=== PATIENT | male | born 2000 | race Caucasian/White ===

== ENCOUNTER 2021-07-29 02:55 | Emergency (ER) | payer MEDICAID ==
[~2021-07-29] VITALS: Ht 177.8 cm; Wt 65.9 kg
[2021-07-29] MEDS ORDERED: normal saline 1000ml 1,000 ML IV ONE ×3 (03:05→05:30)
[2021-07-29] MEDS ORDERED: insulin regular, human 10 units/0.1 ml syringe SQ ONE (03:20)
[2021-07-29 03:38] LABS: BASOPHILS # (AUTO) 0.1 X10'3 (0-0.2); EOSINOPHILS # (AUTO) 0.1 X10'3 (0-0.9); EOSINOPHILS % (AUTO) 1.7 % (0-6); HEMATOCRIT 38.1 % (42.0-52.0); HEMOGLOBIN 13.2 g/dl (14.0-17.9); LYMPHOCYTES # (AUTO) 3.1 X10'3 (1.1-4.8); LYMPHOCYTES % (AUTO) 44.1 % (21-51); MEAN CORPUSCULAR HGB CONC 34.5 g/dL (33.0-36.5); MEAN CORPUSCULAR VOLUME 92.5 FL (78-98); MEAN PLATELET VOLUME 9.3 FL (7.4-10.4); MONOCYTES # (AUTO) 0.4 X10'3 (0-0.9); MONOCYTES % (AUTO) 5.7 % (2-12); NEUTROPHILS # (AUTO) 3.4 X10'3 (1.8-7.7); NEUTROPHILS % (AUTO) 47.5 % (42-75); PLATELET COUNT 205 X10'3 (140-440); RED BLOOD COUNT 4.12 X10'6 (4.70-6.10); RED CELL DISTRIBUTION WIDTH 12.4 % (11.5-14.5); WHITE BLOOD COUNT 7.1 X10'3 (4.5-11.0)
[2021-07-29 03:55] LABS: ALBUMIN 3.7 G/DL (3.4-5.0); ANION GAP 19 (8-16); BLOOD UREA NITROGEN 20 MG/DL (7-18); BUN/CREATININE RATIO 18.3 (5.4-32.0); CALCIUM 8.9 MG/DL (8.5-10.1); CHLORIDE 97 MMOL/L (99-107); CREATININE 1.09 MG/DL (0.60-1.10); POTASSIUM 4.3 MMOL/L (3.5-5.1); SODIUM 135 MMOL/L (135-145); TOTAL CARBON DIOXIDE 18.7 MMOL/L (24-32); eGFR 86 ML/MIN
[2021-07-29 04:03] LABS: GLUCOSE 514 MG/DL (70-104)
[2021-07-29 05:11] LABS: ALANINE AMINOTRANSFERASE 15 U/L (12-78); ALBUMIN 2.4 G/DL (3.4-5.0); ALBUMIN/GLOBULIN RATIO 1.1 (1.1-1.5); ALKALINE PHOSPHATASE 136 IU/L (20-180); ANION GAP 16 (8-16); ASPARTATE AMINO TRANSFERASE 8 U/L (10-37); BILIRUBIN,TOTAL 0.3 MG/DL (0.1-1.0); BLOOD UREA NITROGEN 16 MG/DL (7-18); BUN/CREATININE RATIO 20.8 (5.4-32.0); CALCIUM 6.5 MG/DL (8.5-10.1); CHLORIDE 110 MMOL/L (99-107); CREATININE 0.77 MG/DL (0.60-1.10); GLUCOSE 400 MG/DL (70-104); POTASSIUM 3.1 MMOL/L (3.5-5.1); SODIUM 142 MMOL/L (135-145); TOTAL CARBON DIOXIDE 16.4 MMOL/L (24-32); TOTAL PROTEIN 4.6 G/DL (6.4-8.2); eGFR > 90 ML/MIN
[2021-07-29] MEDS ORDERED: potassium chloride 10mEq ER tablet PO STA (05:29)
[2021-07-29 05:57] VITALS: BP 119/61
== END 2021-07-29 06:25 ==
LOC: ER 02:56
DX: E10.65 Type 1 diabetes mellitus with hyperglycemia (principal); E87.2 Acidosis; R10.84 Generalized abdominal pain; Z88.8 Allergy status to other drugs, medicaments and biological substances
CPT/HCPCS: 36415; 80048; 80053; 82948; 85025; 96360; 96372; 99284; J1815; J7030

== ENCOUNTER 2021-08-01 19:50 | Inpatient (IN) | payer MEDICAID ==
[~2021-08-01] VITALS: Ht 180.3 cm; Wt 65.0 kg
[2021-08-01 20:22] LABS: ABG OXYGEN SATURATION 97.9 % (94-97); ABG PO2 (T) 133.2 mmHg (75.0-100.0); ALLEN'S TEST POSITIVE; FCOHb 0.1 % (0.0-3.9); FMetHb 0.1 % (0.0-1.5); FO2Hb 97.7 % (94-97); PATIENT TEMPERATURE 37.2; TOTAL HEMOGLOBIN 13.8 G/dl (14.0-18.0)
[2021-08-01 20:36] LABS: BASOPHILS # (AUTO) 0.1 X10'3 (0-0.2); BASOPHILS % (AUTO) 0.4 % (0-1); EOSINOPHILS % (AUTO) 0 % (0-6); HEMATOCRIT 39.7 % (42.0-52.0); HEMOGLOBIN 13.3 g/dl (14.0-17.9); LYMPHOCYTES # (AUTO) 0.5 X10'3 (1.1-4.8); MEAN CORPUSCULAR HEMOGLOBIN 31.6 PG (27.0-31.0); MEAN CORPUSCULAR HGB CONC 33.5 g/dL (33.0-36.5); MEAN CORPUSCULAR VOLUME 94.3 FL (78-98); MEAN PLATELET VOLUME 8.7 FL (7.4-10.4); MONOCYTES % (AUTO) 6.2 % (2-12); NEUTROPHILS # (AUTO) 15.3 X10'3 (1.8-7.7); NEUTROPHILS % (AUTO) 90.4 % (42-75); PLATELET COUNT 209 X10'3 (140-440); RED BLOOD COUNT 4.21 X10'6 (4.70-6.10); RED CELL DISTRIBUTION WIDTH 13.1 % (11.5-14.5); WHITE BLOOD COUNT 16.9 X10'3 (4.5-11.0)
[2021-08-01 20:53] LABS: ALANINE AMINOTRANSFERASE 24 U/L (12-78); ALBUMIN 2.9 G/DL (3.4-5.0); ALBUMIN/GLOBULIN RATIO 0.9 (1.1-1.5); ALKALINE PHOSPHATASE 124 IU/L (20-180); ASPARTATE AMINO TRANSFERASE 17 U/L (10-37); BILIRUBIN,TOTAL 0.4 MG/DL (0.1-1.0); BLOOD UREA NITROGEN 13 MG/DL (7-18); BUN/CREATININE RATIO 10.7 (5.4-32.0); CALCIUM 7.4 MG/DL (8.5-10.1); CHLORIDE 114 MMOL/L (99-107); CREATININE 1.22 MG/DL (0.60-1.10); GLUCOSE 311 MG/DL (70-104); MAGNESIUM 1.7 MG/DL (1.5-2.4); SODIUM 150 MMOL/L (135-145); TOTAL PROTEIN 6.3 G/DL (6.4-8.2); eGFR 76 ML/MIN
[2021-08-01] MEDS ORDERED: vancomycin/NS 1 GM ADD-VANTAGE 250 ML IV ONE (21:00)
[2021-08-01] MEDS ORDERED: piperacillin/tazo 3.375gm/50ml 50 ML IV ONE (21:00)
[2021-08-01 21:05] LABS: URINE AMPHETAMINE SCREEN NEGATIVE (Neg); URINE BARBITUATE SCREEN NEGATIVE (Neg); URINE BENZODIAZEPINES SCREEN NEGATIVE (Neg); URINE CANNABINOID SCREEN NEGATIVE (Neg); URINE COCAINE SCREEN NEGATIVE (Neg); URINE METHADONE SCREEN NEGATIVE (Neg); URINE OPIATE SCREEN NEGATIVE (Neg); URINE PHENCYCLIDINE SCREEN NEGATIVE (Neg)
[2021-08-01 21:05] LABS: ANION GAP 31 (8-16)
[2021-08-01 21:08] LABS: TOTAL CARBON DIOXIDE < 5 MMOL/L (24-32)
[2021-08-01 21:11] LABS: COLOR,URINE STRAW (Yellow); UA COLLECTION TYPE NON-SPECIFIED
[2021-08-01 21:12] LABS: CLARITY,URINE SLIGHTLY CLOUDY (Clear); GLUCOSE, URINE 100 mg/dl (Neg); KETONES,URINE >=160 mg/dl (Neg); LEUKOCYTE ESTERASE ,URINE NEGATIVE (Neg); NITRITES, URINE NEGATIVE (Neg); OCCULT BLOOD,URINE MODERATE (Neg); PROTEIN,URINE TRACE mg/dl (Neg); UROBILINOGEN,URINE 0.2 E.U/dL (0.2-1.0)
[2021-08-01 21:17] LABS: COARSE GRANULAR CAST 0-3 /LPF (NEGATIVE); SQUAMOUS EPITHELIAL CELL,UR FEW /LPF (FEW)
[2021-08-01 21:20] LABS: BACTERIA,URINE NONE SEEN /HPF (Neg); RBC,URINE 0-2 /HPF (0-2); WBC,URINE 0-4 /HPF (0-4)
[2021-08-01] MEDS ORDERED: dextrose 50%-water 50ml dispensing syringe IV PRN (21:45)
[2021-08-01] MEDS ORDERED: sodium bicarbonate (8.4%) inj. 150 MEQ in dextrose 5%-water 1,000 ML IV SCH (21:45)
[2021-08-01] MEDS ORDERED: Insulin Reg/NS 100units/100mL 100 ML IV SCH ×5 (21:45→21:55)
[2021-08-01] MEDS ORDERED: insulin regular, human U-100 3ml vial - multi-dose IV PRN ×4 (21:55)
[2021-08-01] MEDS ORDERED: sodium bicarbonate (8.4%) inj. 100 MEQ in dextrose 5% water 500ml 500 ML IV PRN ×10 (21:55)
[2021-08-01] MEDS ORDERED: Neutra Phos packet PO PRN ×5 (21:55)
[2021-08-01] MEDS ORDERED: sodium phosphate inj. 15 MMOL in dextrose 5%-water 250 ML IV PRN ×10 (21:55)
[2021-08-01] MEDS ORDERED: sodium bicarbonate (8.4%) inj. 50 MEQ in dextrose 5% water 500ml 250 ML IV PRN ×10 (21:55)
[2021-08-01] MEDS ORDERED: sodium phosphate inj. 30 MMOL in dextrose 5%-water 250 ML IV PRN ×8 (21:55)
[2021-08-01] MEDS ORDERED: normal saline 1000ml 1,000 ML IV SCH ×8 (21:55)
[2021-08-01] MEDS ORDERED: potassium CL 20mEq in D5-1/2NS 1,000 ML IV PRN ×5 (21:55)
[2021-08-01] MEDS ORDERED: potassium Cl 40MEQ/1/2NS 520ml 520 ML IV PRN ×9 (21:55)
[2021-08-01] MEDS ORDERED: potassium Cl 20 mEq SR tablet PO PRN ×10 (21:55)
[2021-08-01] MEDS: normal saline 1000ml 1,000 ML IV SCH (22:25)
[2021-08-01] MEDS ORDERED: acetaminophen 325mg tablet PO PRN (23:15)
[2021-08-01] MEDS ORDERED: ondansetron/PF 4mg/2ml inj IV PRN (23:15)
[2021-08-01] MEDS: potassium Cl 10 mEq/100mL bag IV SCH (23:29)
[2021-08-02 00:29] LABS: ALBUMIN 2.8 G/DL (3.4-5.0); BLOOD UREA NITROGEN 15 MG/DL (7-18); BUN/CREATININE RATIO 10.4 (5.4-32.0); CALCIUM 7.2 MG/DL (8.5-10.1); CHLORIDE 116 MMOL/L (99-107); CREATININE 1.44 MG/DL (0.60-1.10); GLUCOSE 403 MG/DL (70-104); PHOSPHORUS 3.4 MG/DL (2.3-4.5); POTASSIUM 3.2 MMOL/L (3.5-5.1); SODIUM 151 MMOL/L (135-145); eGFR 63 ML/MIN
[2021-08-02] MEDS: potassium Cl 10 mEq/100mL bag IV SCH ×3 (00:47→03:17)
[2021-08-02] MEDS: normal saline 1000ml 1,000 ML IV SCH ×5 (00:49→13:55)
[2021-08-02 00:53] LABS: ANION GAP 30 (8-16)
[2021-08-02 00:55] LABS: TOTAL CARBON DIOXIDE < 5 MMOL/L (24-32)
[2021-08-02 01:59] LABS: TOTAL CELLS COUNTED 100
[2021-08-02 02:00] LABS: PLATELET ESTIMATE NORMAL
[2021-08-02 04:15] LABS: ALBUMIN 2.8 G/DL (3.4-5.0); BLOOD UREA NITROGEN 17 MG/DL (7-18); BUN/CREATININE RATIO 10.6 (5.4-32.0); CALCIUM 6.9 MG/DL (8.5-10.1); CHLORIDE 117 MMOL/L (99-107); CREATININE 1.61 MG/DL (0.60-1.10); GLUCOSE 431 MG/DL (70-104); PHOSPHORUS 3.7 MG/DL (2.3-4.5); POTASSIUM 5.5 MMOL/L (3.5-5.1); SODIUM 151 MMOL/L (135-145); eGFR 55 ML/MIN
[2021-08-02 04:24] LABS: ANION GAP 29 (8-16); TOTAL CARBON DIOXIDE < 5 MMOL/L (24-32)
[2021-08-02] MEDS: Insulin Reg/NS 100units/100mL 100 ML IV SCH ×3 (04:29→19:05)
[2021-08-02] MEDS: insulin regular, human U-100 3ml vial - multi-dose IV PRN ×4 (04:34→08:36)
[2021-08-02] MEDS: K and/or MAG REPLACEMENT MC SCH ×2 (08:00→20:00)
[2021-08-02] MEDS ORDERED: K and/or MAG REPLACEMENT MC SCH ×4 (08:00)
[2021-08-02] MEDS: enoxaparin 40mg/0.4ml syringe SUBCUT SCH (08:53)
[2021-08-02] MEDS: sodium bicarbonate (8.4%) inj. 50 MEQ in dextrose 5%-water 1,000 ML IV SCH ×2 (10:01→11:51)
[2021-08-02 12:18] LABS: ALANINE AMINOTRANSFERASE 22 U/L (12-78); ALBUMIN 2.6 G/DL (3.4-5.0); ALBUMIN/GLOBULIN RATIO 0.9 (1.1-1.5); ALKALINE PHOSPHATASE 120 IU/L (20-180); ANION GAP 25 (8-16); ASPARTATE AMINO TRANSFERASE 16 U/L (10-37); BILIRUBIN,TOTAL 0.6 MG/DL (0.1-1.0); BLOOD UREA NITROGEN 20 MG/DL (7-18); BUN/CREATININE RATIO 11.2 (5.4-32.0); CALCIUM 6.9 MG/DL (8.5-10.1); CHLORIDE 115 MMOL/L (99-107); CREATININE 1.78 MG/DL (0.60-1.10); MAGNESIUM 1.9 MG/DL (1.5-2.4); SODIUM 153 MMOL/L (135-145); TOTAL PROTEIN 5.4 G/DL (6.4-8.2); eGFR 49 ML/MIN
[2021-08-02 12:24] LABS: GLUCOSE 529 MG/DL (70-104); PHOSPHORUS 1.1 MG/DL (2.3-4.5); POTASSIUM 2.7 MMOL/L (3.5-5.1); TOTAL CARBON DIOXIDE 13.1 MMOL/L (24-32)
[2021-08-02] MEDS: MAGNESIUM IV SCH ×2 (12:27→16:41)
[2021-08-02] MEDS: [UNRECOGNIZED DRUG - OTHER] IV SCH ×2 (12:27→16:41)
[2021-08-02] MEDS: SODIUM BICARBONATE IV SCH ×3 (12:27→18:35)
[2021-08-02] MEDS ORDERED: NAPR-996 PO (13:49)
[2021-08-02] MEDS ORDERED: INSU100I39 SQ (13:49)
[2021-08-02] MEDS ORDERED: haloperidol lactate 5mg/ml inj IM PRN (17:00)
[2021-08-02] MEDS ORDERED: LORazepam 2 mg/ml vial IV PRN (17:00)
[2021-08-02] MEDS ORDERED: thiamine 100mg/ml 2ml inj. IV ONE (17:00)
[2021-08-02] MEDS ORDERED: dextrose 50%-water 50ml dispensing syringe IV PRN (17:00)
[2021-08-02] MEDS: esmolol/sodium cl bag 250 ML IV SCH (17:00)
[2021-08-02 17:35] LABS: ALANINE AMINOTRANSFERASE 22 U/L (12-78); ALBUMIN 2.7 G/DL (3.4-5.0); ALBUMIN/GLOBULIN RATIO 0.9 (1.1-1.5); ALKALINE PHOSPHATASE 121 IU/L (20-180); ANION GAP 14 (8-16); ASPARTATE AMINO TRANSFERASE 17 U/L (10-37); BILIRUBIN,TOTAL 0.4 MG/DL (0.1-1.0); BLOOD UREA NITROGEN 17 MG/DL (7-18); BUN/CREATININE RATIO 11.2 (5.4-32.0); CALCIUM 7.4 MG/DL (8.5-10.1); CHLORIDE 122 MMOL/L (99-107); CREATININE 1.52 MG/DL (0.60-1.10); GLUCOSE 171 MG/DL (70-104); TOTAL CARBON DIOXIDE 22.7 MMOL/L (24-32); TOTAL PROTEIN 5.6 G/DL (6.4-8.2); eGFR 59 ML/MIN
[2021-08-02 17:39] LABS: POTASSIUM 1.8 MMOL/L (3.5-5.1); SODIUM 159 MMOL/L (135-145)
[2021-08-02 17:41] LABS: PHOSPHORUS 0.4 MG/DL (2.3-4.5)
[2021-08-02 18:00] VITALS: BP 91/46
[2021-08-02] MEDS: [UNRECOGNIZED DRUG - OTHER] IV SCH (18:35)
[2021-08-02] MEDS: POTASSIUM CL IV SCH (18:35)
[2021-08-02] MEDS: sodium phosphate inj. 30 MMOL in dextrose 5%-water 250 ML IV PRN (18:36)
[2021-08-02 19:00] VITALS: BP 100/54
[2021-08-02 20:00] VITALS: BP 79/55
[2021-08-02 21:00] VITALS: BP 95/45
[2021-08-02 21:05] LABS: ALANINE AMINOTRANSFERASE 22 U/L (12-78); ALBUMIN 2.7 G/DL (3.4-5.0); ALKALINE PHOSPHATASE 121 IU/L (20-180); ANION GAP 11 (8-16); ASPARTATE AMINO TRANSFERASE 18 U/L (10-37); BILIRUBIN,TOTAL 0.3 MG/DL (0.1-1.0); BLOOD UREA NITROGEN 17 MG/DL (7-18); BUN/CREATININE RATIO 11.7 (5.4-32.0); CALCIUM 7.4 MG/DL (8.5-10.1); CHLORIDE 120 MMOL/L (99-107); CREATININE 1.45 MG/DL (0.60-1.10); GLUCOSE 78 MG/DL (70-104); MAGNESIUM 1.8 MG/DL (1.5-2.4); TOTAL CARBON DIOXIDE 27.8 MMOL/L (24-32); TOTAL PROTEIN 5.5 G/DL (6.4-8.2); eGFR 62 ML/MIN
[2021-08-02 21:14] LABS: PHOSPHORUS 0.9 MG/DL (2.3-4.5); POTASSIUM 2.1 MMOL/L (3.5-5.1); SODIUM 159 MMOL/L (135-145)
[2021-08-02 22:00] VITALS: BP 113/41
[2021-08-02 23:00] VITALS: BP 95/41
[2021-08-03] VITALS (24 sets, daily range): BP systolic 87–121; BP diastolic 33–76
[2021-08-03] MEDS: POTASSIUM CL IV SCH ×4 (00:14→23:52)
[2021-08-03] MEDS: [UNRECOGNIZED DRUG - OTHER] IV SCH ×4 (00:14→23:52)
[2021-08-03] MEDS: SODIUM BICARBONATE IV SCH ×4 (00:14→23:52)
[2021-08-03 01:50] LABS: ALANINE AMINOTRANSFERASE 22 U/L (12-78); ALBUMIN 2.4 G/DL (3.4-5.0); ALBUMIN/GLOBULIN RATIO 0.9 (1.1-1.5); ALKALINE PHOSPHATASE 110 IU/L (20-180); ANION GAP 10 (8-16); ASPARTATE AMINO TRANSFERASE 17 U/L (10-37); BILIRUBIN,TOTAL 0.4 MG/DL (0.1-1.0); BLOOD UREA NITROGEN 17 MG/DL (7-18); BUN/CREATININE RATIO 12.2 (5.4-32.0); CALCIUM 7.1 MG/DL (8.5-10.1); CHLORIDE 119 MMOL/L (99-107); CREATININE 1.39 MG/DL (0.60-1.10); GLUCOSE 171 MG/DL (70-104); MAGNESIUM 1.8 MG/DL (1.5-2.4); TOTAL CARBON DIOXIDE 28.9 MMOL/L (24-32); eGFR 65 ML/MIN
[2021-08-03 02:16] LABS: SODIUM 158 MMOL/L (135-145)
[2021-08-03 02:17] LABS: PHOSPHORUS 0.7 MG/DL (2.3-4.5); POTASSIUM 1.8 MMOL/L (3.5-5.1)
[2021-08-03] MEDS: potassium Cl 40MEQ/1/2NS 520ml 520 ML IV PRN ×3 (02:35→12:44)
[2021-08-03] MEDS: sodium phosphate inj. 30 MMOL in dextrose 5%-water 250 ML IV PRN (03:25)
[2021-08-03] MEDS: esmolol/sodium cl bag 250 ML IV SCH ×2 (05:15→18:40)
[2021-08-03] MEDS: potassium CL 20mEq in D5-1/2NS 1,000 ML IV SCH ×3 (06:50→18:25)
[2021-08-03] MEDS: K and/or MAG REPLACEMENT MC SCH ×2 (07:59→20:02)
[2021-08-03] MEDS: enoxaparin 40mg/0.4ml syringe SUBCUT SCH (07:59)
[2021-08-03 10:32] LABS: ALANINE AMINOTRANSFERASE 18 U/L (12-78); ALBUMIN 2.3 G/DL (3.4-5.0); ALBUMIN/GLOBULIN RATIO 0.9 (1.1-1.5); ALKALINE PHOSPHATASE 105 IU/L (20-180); ANION GAP 29 (8-16); ASPARTATE AMINO TRANSFERASE 22 U/L (10-37); BILIRUBIN,TOTAL 0.6 MG/DL (0.1-1.0); BLOOD UREA NITROGEN 16 MG/DL (7-18); BUN/CREATININE RATIO 12.9 (5.4-32.0); CALCIUM 6.7 MG/DL (8.5-10.1); CHLORIDE 112 MMOL/L (99-107); CREATININE 1.24 MG/DL (0.60-1.10); GLUCOSE 440 MG/DL (70-104); MAGNESIUM 1.7 MG/DL (1.5-2.4); PHOSPHORUS 2.8 MG/DL (2.3-4.5); TOTAL CARBON DIOXIDE 17.2 MMOL/L (24-32); TOTAL PROTEIN 4.8 G/DL (6.4-8.2); eGFR 74 ML/MIN
[2021-08-03 10:35] LABS: POTASSIUM 2.3 MMOL/L (3.5-5.1); SODIUM 158 MMOL/L (135-145)
--- NOTE | 2021-08-03 12:06 | NUR ---
Initial: Pt found unresponsive and brought in w/ DKA per EMR. Per RN, pt reports an A1C of 14, RD d/w RN recommendation for an A1c lab this admit. Per MD note pt is encephalopathic, noted to be confused an non-orientable per physical assessment. Pt currently NPO receiving KCl/D5/NS at 150ml/hr providing 612kcals/d. Pt would benefit from DM education once more stable. Will continue to follow closely. Recommendations: 1) Advance to CHO controlled diet as medically indicated 2) Bowel care per rx 3) Scaled weight this admit; weekly scaled weights thereafter 4) DM education once stable, A1c pending Addendum: 08/03/21 at [address] Amended: Links added.
[2021-08-03] MEDS: Insulin Reg/NS 100units/100mL 100 ML IV SCH (13:01)
[2021-08-03 13:16] LABS: ALANINE AMINOTRANSFERASE 19 U/L (12-78); ALBUMIN 2.5 G/DL (3.4-5.0); ALBUMIN/GLOBULIN RATIO 0.8 (1.1-1.5); ALKALINE PHOSPHATASE 113 IU/L (20-180); ANION GAP 31 (8-16); ASPARTATE AMINO TRANSFERASE 18 U/L (10-37); BILIRUBIN,TOTAL 0.7 MG/DL (0.1-1.0); BLOOD UREA NITROGEN 18 MG/DL (7-18); BUN/CREATININE RATIO 12.8 (5.4-32.0); CALCIUM 7.1 MG/DL (8.5-10.1); CHLORIDE 108 MMOL/L (99-107); CREATININE 1.41 MG/DL (0.60-1.10); SODIUM 152 MMOL/L (135-145); TOTAL PROTEIN 5.5 G/DL (6.4-8.2); eGFR 64 ML/MIN
[2021-08-03 13:22] LABS: GLUCOSE 534 MG/DL (70-104); POTASSIUM 2.3 MMOL/L (3.5-5.1)
[2021-08-03 13:23] LABS: TOTAL CARBON DIOXIDE 13.1 MMOL/L (24-32)
[2021-08-03] MEDS: Neutra Phos packet PO SCH ×2 (14:00→20:00)
[2021-08-03] MEDS: POTASSIUM BICARB 20meq eff tab 20 MEQ TABLET.EFF PO SCH ×3 (15:03→20:01)
[2021-08-03] MEDS: magnesium oxide 400mg tablet PO SCH (15:13)
[2021-08-03 18:33] LABS: ALANINE AMINOTRANSFERASE 16 U/L (12-78); ALBUMIN 2.3 G/DL (3.4-5.0); ALBUMIN/GLOBULIN RATIO 0.9 (1.1-1.5); ALKALINE PHOSPHATASE 106 IU/L (20-180); ANION GAP 12 (8-16); ASPARTATE AMINO TRANSFERASE 14 U/L (10-37); BILIRUBIN,TOTAL 0.5 MG/DL (0.1-1.0); BLOOD UREA NITROGEN 16 MG/DL (7-18); BUN/CREATININE RATIO 11.9 (5.4-32.0); CALCIUM 6.9 MG/DL (8.5-10.1); CHLORIDE 111 MMOL/L (99-107); CREATININE 1.34 MG/DL (0.60-1.10); GLUCOSE 381 MG/DL (70-104); MAGNESIUM 1.9 MG/DL (1.5-2.4); SODIUM 148 MMOL/L (135-145); TOTAL CARBON DIOXIDE 24.8 MMOL/L (24-32); TOTAL PROTEIN 4.8 G/DL (6.4-8.2); eGFR 68 ML/MIN
[2021-08-03 18:35] LABS: POTASSIUM 2.5 MMOL/L (3.5-5.1)
[2021-08-04] VITALS (19 sets, daily range): BP systolic 90–117; BP diastolic 35–67
[2021-08-04] MEDS: magnesium oxide 400mg tablet PO SCH ×3 (00:39→16:29)
[2021-08-04] MEDS: potassium CL 20mEq in D5-1/2NS 1,000 ML IV SCH ×4 (01:05→19:58)
--- NOTE | 2021-08-04 03:06 | NUR ---
Patient becoming more awake, insulin drips infusing at 6unit/h as order.no signs of distress noted will continue to monitor and report changes
[2021-08-04] MEDS ORDERED: insulin glargine (Lantus) pen - multi-dose SQ ONE (04:35)
[2021-08-04 06:19] LABS: ALANINE AMINOTRANSFERASE 21 U/L (12-78); ALBUMIN 2.1 G/DL (3.4-5.0); ALBUMIN/GLOBULIN RATIO 0.9 (1.1-1.5); ALKALINE PHOSPHATASE 101 IU/L (20-180); ANION GAP 18 (8-16); ASPARTATE AMINO TRANSFERASE 25 U/L (10-37); BILIRUBIN,TOTAL 0.9 MG/DL (0.1-1.0); BLOOD UREA NITROGEN 14 MG/DL (7-18); BUN/CREATININE RATIO 14.9 (5.4-32.0); CALCIUM 7.4 MG/DL (8.5-10.1); CHLORIDE 105 MMOL/L (99-107); CREATININE 0.94 MG/DL (0.60-1.10); MAGNESIUM 2.2 MG/DL (1.5-2.4); PHOSPHORUS 1.7 MG/DL (2.3-4.5); POTASSIUM 4.2 MMOL/L (3.5-5.1); SODIUM 141 MMOL/L (135-145); TOTAL CARBON DIOXIDE 18.5 MMOL/L (24-32); TOTAL PROTEIN 4.5 G/DL (6.4-8.2); eGFR > 90 ML/MIN
--- NOTE | 2021-08-04 06:19 | NUR ---
Problems reprioritized. Patient report given, questions answered & plan of care reviewed with Ovidio TELLO .
[2021-08-04 06:25] LABS: GLUCOSE 468 MG/DL (70-104)
[2021-08-04] MEDS: esmolol/sodium cl bag 250 ML IV SCH (07:30)
[2021-08-04] MEDS: Neutra Phos packet PO SCH ×3 (08:30→21:54)
[2021-08-04] MEDS: POTASSIUM BICARB 20meq eff tab 20 MEQ TABLET.EFF PO SCH ×4 (08:30→21:54)
[2021-08-04] MEDS: enoxaparin 40mg/0.4ml syringe SUBCUT SCH (08:30)
[2021-08-04] MEDS: K and/or MAG REPLACEMENT MC SCH ×2 (08:33→20:00)
--- NOTE | 2021-08-04 09:45 | NUR ---
pt requested to leave [facility] at 0845 and AMA paperwork was signed and a ride was called for the pt. Upon calling the pt's ride, the grandmother, she convinced the pt to stay and receive care. A new 20ga IV was placed in the right forearm because the existing IV's were removed by the patient. The pt's husain was also removed and he requested to not have it replaced. the IV infusions were restarted at 0945 at the prior rates. labwork will be drawn now due to pt refusal of labs at 0845 when he was initially requesting to leave [facility].
[2021-08-04 10:28] LABS: BASOPHILS % (AUTO) 0.1 % (0-1); EOSINOPHILS % (AUTO) 0.1 % (0-6); HEMATOCRIT 33.3 % (42.0-52.0); HEMOGLOBIN 11.3 g/dl (14.0-17.9); LYMPHOCYTES # (AUTO) 1.5 X10'3 (1.1-4.8); LYMPHOCYTES % (AUTO) 18.6 % (21-51); MEAN CORPUSCULAR HEMOGLOBIN 31.1 PG (27.0-31.0); MEAN CORPUSCULAR HGB CONC 33.8 g/dL (33.0-36.5); MEAN CORPUSCULAR VOLUME 91.8 FL (78-98); MEAN PLATELET VOLUME 8.6 FL (7.4-10.4); MONOCYTES # (AUTO) 0.3 X10'3 (0-0.9); MONOCYTES % (AUTO) 3.5 % (2-12); NEUTROPHILS # (AUTO) 6.4 X10'3 (1.8-7.7); NEUTROPHILS % (AUTO) 77.7 % (42-75); PLATELET COUNT 129 X10'3 (140-440); RED BLOOD COUNT 3.63 X10'6 (4.70-6.10); WHITE BLOOD COUNT 8.3 X10'3 (4.5-11.0)
[2021-08-04] MEDS: [UNRECOGNIZED DRUG - OTHER] IV SCH (10:30)
[2021-08-04] MEDS: SODIUM BICARBONATE IV SCH (10:30)
[2021-08-04] MEDS: POTASSIUM CL IV SCH (10:30)
[2021-08-04 10:46] LABS: ALANINE AMINOTRANSFERASE 21 U/L (12-78); ALBUMIN 2.3 G/DL (3.4-5.0); ALBUMIN/GLOBULIN RATIO 0.9 (1.1-1.5); ALKALINE PHOSPHATASE 106 IU/L (20-180); ANION GAP 22 (8-16); ASPARTATE AMINO TRANSFERASE 19 U/L (10-37); BILIRUBIN,TOTAL 0.8 MG/DL (0.1-1.0); BLOOD UREA NITROGEN 16 MG/DL (7-18); BUN/CREATININE RATIO 14.7 (5.4-32.0); CALCIUM 7.7 MG/DL (8.5-10.1); CHLORIDE 105 MMOL/L (99-107); CREATININE 1.09 MG/DL (0.60-1.10); MAGNESIUM 2.2 MG/DL (1.5-2.4); PHOSPHORUS 1.8 MG/DL (2.3-4.5); POTASSIUM 3.5 MMOL/L (3.5-5.1); SODIUM 143 MMOL/L (135-145); TOTAL CARBON DIOXIDE 15.9 MMOL/L (24-32); TOTAL PROTEIN 4.8 G/DL (6.4-8.2); eGFR 86 ML/MIN
[2021-08-04 10:49] LABS: GLUCOSE 469 MG/DL (70-104)
[2021-08-04 13:56] LABS: ABG PCO2 (T) < 10.0 mmHg (35.0-48.0)
--- NOTE | 2021-08-04 19:40 | NUR ---
Patient is refusing everything. He refused 6pm blood draw, educated on need for blood draw, still refused. Patient also refused 7pm blood glucose check. Previous check at 6pm was 120mg/dl. Also educated on need for hourly blood glucose checks, but patient still declines. MD Avery made aware.
[2021-08-04] MEDS: LORazepam 2 mg/ml vial IV PRN ×2 (21:00→23:04)
[2021-08-04] MEDS: Insulin Reg/NS 100units/100mL 100 ML IV SCH (23:39)
[2021-08-05] VITALS (7 sets, daily range): BP systolic 89–104; BP diastolic 34–57
[2021-08-05] MEDS: magnesium oxide 400mg tablet PO SCH
[2021-08-05] MEDS: potassium CL 20mEq in D5-1/2NS 1,000 ML IV SCH (03:03)
--- NOTE | 2021-08-05 04:27 | NUR ---
Alert and responsive, oriented x 4 patient, restless, argumentative, agitated at times, refused care multiple times during the shift. Patient refused PM blood draws, so unable to determine anion gaps, and CO2 levels for the shift. Maintained on Insulin drip, and K+D5-1/2NS at 150ml/hr; tolerated during the shift Blood glucose was fllunctuating during the shift, but was mostly stable. Patient administered Ativan 2mg/ml IV PRN twice during the shift for agitation, and patient eventually became calmer, and slept. Vitals were stable, but with hypotension at times. Grandmother called and inquired about patient.
[2021-08-05] MEDS ORDERED: ringers solution, lacted 1,000 ML IV ONE (06:00)
--- NOTE | 2021-08-05 06:30 | NUR ---
Received report from Inga, RN
[2021-08-05] MEDS: K and/or MAG REPLACEMENT MC SCH (06:39)
--- NOTE | 2021-08-05 09:39 | NUR ---
LATE ENTRY: 0721 Patient's blood glucose was 64. Patient refused D50. Patient was given juice to drink. Refused to let me check his blood sugar again.
--- NOTE | 2021-08-05 09:41 | NUR ---
LATE ENTRY: 07 Patient refused to take any ordered medications. Locked his iv line and closed the roller clamp on the iv, iv medications alarmed and would not run. He stated, "I am leaving." Apparently he threatened the same thing yesterday. The doctor talked with him as did the nurses and advised him that it was in his best interest to stay under the care of Dr. Blair. He did stay. Today, myself and ELISHA Newberry advised him of the dangers of leaving the hospital and that he was not well enough. Patient was alert and oriented and clearly stated that he was no longer staying in the hospital. He signed the paperwork necessary to leave the hospital against medical advice. He was taken to the front of the hospital via wheelchair. Pt. had socks on, which were the only belongings he brought with him to the hospital. He also had a pair of pants and t-shirt that he had been given yesterday. We also made sure that his nutrition and hydration were addressed. I called his grandma to let her know that he had signed the paperwork to leave. She stated that she would be on her way to pick him up. Addendum: 08/05/21 at 0952 by Kristina Ugarte RN I also notified Dr. Blair by telephone of the patient's choice to leave against medical advice.
== END 2021-08-05 09:00 | disposition left against medical advice (07) | DRG 420 ==
LOC: ER 19:50 → ED HOLD 23:15 → ICU 2S 08-02 17:34
PROVIDERS: ADMIT Internal Medicine; ATTEND Internal Medicine
DX: E10.10 Type 1 diabetes mellitus with ketoacidosis without coma (principal); G93.41 Metabolic encephalopathy; N17.9 Acute kidney failure, unspecified; E87.0 Hyperosmolality and hypernatremia; E87.6 Hypokalemia; Z53.29 Procedure and treatment not carried out because of patient's decision for other reasons; Z91.19 Patient's noncompliance with other medical treatment and regimen; Z79.4 Long term (current) use of insulin; Z88.8 Allergy status to other drugs, medicaments and biological substances
CPT/HCPCS: 36415; 36600; 70450; 71045; 80048; 80053; 80305; 81001; 82803; 82948; 83605; 83735; 84100; 84145; 85007; 85018; 85025; 87040; 93005; 96365; 96375; 99291; G0378; J1650; J1815; J2060; J2543; J3370; J3411; J3480; J7030; J7060; J7070

== ENCOUNTER 2021-08-05 08:42 | Emergency (ER) | payer MEDICAID ==
[~2021-08-05] VITALS: Ht 180.3 cm; Wt 68.2 kg
[~2021-08-05 08:42] MED LIST: INSU100I39 SQ; NAPR-996 PO
[2021-08-05 09:59] VITALS: BP 95/66
--- NOTE | 2021-08-05 12:56 | NUR ---
PATIENT'S GRANDMOTHER WHO IS PICKING HIM UP IS 1.5 HOURS AWAY
== END 2021-08-06 01:14 | disposition left against medical advice (07) ==
LOC: ER 08:43
DX: E11.10 Type 2 diabetes mellitus with ketoacidosis without coma (principal); Z79.2 Long term (current) use of antibiotics; Z88.8 Allergy status to other drugs, medicaments and biological substances; Z79.4 Long term (current) use of insulin; Z79.899 Other long term (current) drug therapy; Z53.21 Procedure and treatment not carried out due to patient leaving prior to being seen by health care provider